=== PATIENT | male | born 1975 | race Caucasian/White ===

== ENCOUNTER 2018-08-12 18:34 | Emergency (ER) | payer MEDICAID ==
[~2018-08-12] VITALS: Ht 162.6 cm; Wt 65.8 kg
[2018-08-12 18:35] VITALS: BP_SYST 135
[2018-08-12] MEDS ORDERED: FOLIC ACID 1 MG, THIAMINE HCL 100 MG, MAGNESIUM SULFATE 1 GM, MVI 10 ML in NACL 0.9% 1,... IV ONE (20:15)
[2018-08-12] MEDS ORDERED: THIAMINE HCL 100 MG/ML VIAL ONE (20:43)
[2018-08-12] MEDS ORDERED: FOLIC ACID 5 MG/ML VIAL IV ONE (20:43)
[2018-08-12] MEDS ORDERED: MVI 10 ML VIAL IV ONE (20:43)
[2018-08-12] MEDS ORDERED: MAGNESIUM SULFATE 1 GM/2 ML VIAL ONE (20:43)
[2018-08-12 21:10] LABS: CALCIUM 8.2 mg/dL (8.4-11.0); CREATININE 0.77 mg/dL (0.55-1.30)
[2018-08-12 21:15] LABS: TOTAL BILIRUBIN 0.4 mg/dL (0.0-1.0)
[2018-08-12 21:16] LABS: PROTHROMBIN TIME 9.9 SECS (9.5-12.5)
[2018-08-12 21:20] LABS: BASOPHILS % (AUTO) 0.5 % (0.0-2.0); EOSINOPHILS % (AUTO) 0.9 % (0.0-4.0); HEMOGLOBIN 12.9 g/dL (14.0-18.0); LYMPHOCYTES # (AUTO) 2.6 K/uL (1.0-5.5); LYMPHOCYTES % (AUTO) 47.8 % (20.5-51.5); MEAN CORPUSCULAR HEMOGLOBIN 31 pg (27-31); MEAN CORPUSCULAR HGB CONC 33 % (32-36); MEAN CORPUSCULAR VOLUME 92 fL (79.0-98.0); MONOCYTES # (AUTO) 0.3 K/uL (0.0-1.0); NEUTROPHILS # (AUTO) 2.5 K/uL (1.8-7.7); NEUTROPHILS % (AUTO) 45.8 % (40.0-70.0); PLATELET COUNT (AUTO) 100 K/uL (130-430); RED BLOOD CELL COUNT(AUTO) 4.24 MIL/uL (4.2-6.2); RED CELL DISTRIBUTION WIDTH 15.2 % (9.0-15.0); WHITE BLOOD COUNT (AUTO) 5.4 K/uL (4.8-10.8)
[2018-08-12 21:34] LABS: BILIRUBIN,URINE NEGATIVE (NEGATIVE); BLOOD, URINE NEGATIVE (NEGATIVE); CLARITY/URINE CLEAR (CLEAR); COLOR,URINE YELLOW (YELLOW); GLUCOSE,URINE NEGATIVE (NEGATIVE); KETONES,URINE NEGATIVE (NEGATIVE); LEUKOCYTE ESTERASE ,URINE NEGATIVE (NEGATIVE); NITRITE, URINE NEGATIVE (NEGATIVE); PH,URINE 5.5 (5.0-8.0); PROTEIN URINE NEGATIVE (NEGATIVE); UROBILINOGEN,URINE 0.2 (0.2-1.0)
[2018-08-12 21:56] LABS: BARBITURATE, URINE NEGATIVE (NEG <=200); BENZODIAZEPINE, URINE POSITIVE (NEG <=150); CANNABINOID, URINE NEGATIVE (NEG <=50); COCAINE, URINE NEGATIVE (NEG <=150); METHAMPHETAMINES SCREEN,URINE NEGATIVE (NEG <=500); OPIATE, URINE NEGATIVE (NEG <=100); PHENCYCLIDINE SCREEN,URINE NEGATIVE (NEG <=25); UR TRICYCLIC ANTIDEPRESSANTS NEGATIVE (NEG <=300); URINE AMPHETAMINE NEGATIVE (NEG <=500); URINE METHADONE NEGATIVE (NEG <=200); URINE OXYCODONE SCREEN NEGATIVE (NEG <=100); URINE PROPOXYPHENE SCREEN NEGATIVE (NEG <=300)
[2018-08-13 00:07] VITALS: BP_SYST 160
== END 2018-08-13 00:07 | disposition short-term general hospital (02) ==
LOC: SED 18:34
DX: F10.129 Alcohol abuse with intoxication, unspecified (principal); I48.91 Unspecified atrial fibrillation; F31.9 Bipolar disorder, unspecified; Y90.9 Presence of alcohol in blood, level not specified
CPT/HCPCS: 36415; 80053; 80307; 81003; 84484; 85025; 85610; 85730; 93005; 96365; 96366; 99285; G0482; J3411; J3475; J3490

== ENCOUNTER 2020-04-01 11:25 | Inpatient (IN) | payer MEDICAID, SELFPAY ==
[~2020-04-01] VITALS: Ht 162.6 cm; Wt 65.3 kg
[2020-04-01 11:29] VITALS: BP_SYST 137
--- NOTE | 2020-04-01 11:33 | NUR ---
Placed in room 3 . Placed on power superintendent, blood pressure machine and pulse oximeter. To gown for exam. Side rails up. Report given to SHAMAR Flynn.
--- NOTE | 2020-04-01 11:37 | NUR ---
ER at bedside examining patient.
[2020-04-01] MEDS ORDERED: NACL 0.9% 2,000 ML IV ONE (11:45)
--- NOTE | 2020-04-01 11:47 | NUR ---
EDIE TO ASSUME CARE, ANXIOUS, ALERT, TACHYCARDIC, SKIN WARM AN DRY C/O ALCOHOL WITHDRAWL AND LAST DRINK 3 DAYS AGO
[2020-04-01 12:02] LABS: BASOPHILS % (AUTO) 0.5 % (0.0-2.0); EOSINOPHILS % (AUTO) 0.5 % (0.0-4.0); HEMOGLOBIN 12.1 g/dL (14.0-18.0); LYMPHOCYTES % (AUTO) 15.3 % (20.5-51.5); MEAN CORPUSCULAR HEMOGLOBIN 30 pg (27-31); MEAN CORPUSCULAR HGB CONC 33 % (32-36); MEAN CORPUSCULAR VOLUME 93 fL (79.0-98.0); MONOCYTES # (AUTO) 0.3 K/uL (0.0-1.0); MONOCYTES % (AUTO) 4.6 % (1.7-9.3); NEUTROPHILS # (AUTO) 4.9 K/uL (1.8-7.7); NEUTROPHILS % (AUTO) 79.1 % (40.0-70.0); PLATELET COUNT (AUTO) 90 K/uL (130-430); RED BLOOD CELL COUNT(AUTO) 3.99 MIL/uL (4.2-6.2); RED CELL DISTRIBUTION WIDTH 16.1 % (9.0-15.0); WHITE BLOOD COUNT (AUTO) 6.2 K/uL (4.8-10.8)
[2020-04-01 12:06] LABS: ANION GAP 19 (5-15); CALCIUM 9.6 mg/dL (8.4-11.0); CHLORIDE 92 mmol/L (98-107); CREATININE 1.67 mg/dL (0.55-1.30); GLUCOSE 223 mg/dL (70-99); SODIUM SERUM 134 mmol/L (136-145); UREA NITROGEN, BLOOD 8 mg/dL (8-21)
[2020-04-01 12:12] LABS: ALANINE AMINOTRANSFERASE 116 U/L (12-78); ALBUMIN 4.7 g/dL (3.4-4.8); ASPARTATE AMINOTRANSFERASE 444 U/L (10-37); TOTAL BILIRUBIN 1.6 mg/dL (0.0-1.0)
[2020-04-01 12:17] LABS: ALCOHOL, BLOOD < 3 mg/dL (<10); GFR AFRICAN AMERICAN 58 mL/min (>90); POTASSIUM 2.8 mmol/L (3.5-5.1)
--- NOTE | 2020-04-01 12:30 | NUR ---
CALM, ALERT, EASILY AROUSED, SKIN WARM AND DRY. COMMUNICATES CLEARLY IN FULL COMPLETE SENTENCES
[2020-04-01] MEDS ORDERED: POTASSIUM CHLORIDE 20 MEQ TAB.PRT.SR PO ONE (13:00)
--- NOTE | 2020-04-01 15:11 | NUR ---
[facility] [employer] Solution Architect, Darrian, requested fax of facesheet and clinicals. fax: [phone] IAM Hallman spoke to Darrian, Ob[employer]e [employer] Solution Architect
--- NOTE | 2020-04-01 15:23 | NUR ---
ADMIT ORDERS RECEIVED FOR TELE ADMISSION
[2020-04-01] MEDS ORDERED: BANANA BAG 1 EA, FOLIC ACID 1 MG, THIAMINE HCL 100 MG, MAGNESIUM SULFATE 1 GM, MVI 10 M... IV SCH ×5 (16:00)
--- NOTE | 2020-04-01 16:03 | NUR ---
Patient will be admitted to care of ROGELIO. Admitted to TELE unit. Will go to room 132C. Belongings list completed. Complete and up to date summary report printed. SBAR report to be given at bedside with opportunity for questions.
--- NOTE | 2020-04-01 16:10 | NUR ---
ADMIT NOTE Received pt from ER to the floor with a diagnosis of Alcohol intoxication. Admission process initiated. patient oriented to pain management, safety and call light-teach back done.
[2020-04-01 16:48] VITALS: BP_SYST 158
--- NOTE | 2020-04-01 16:52 | NUR ---
ATTENDING MD DR CASTRO WAS CALLED, RE: DIET ORDER. SPOKE TO [place].
[2020-04-01] MEDS: THIAMINE HCL 100 MG, MAGNESIUM SULFATE 1 GM in NS 100 ML IV SCH (17:55)
[2020-04-01] MEDS: FOLIC ACID 1 MG, MVI 10 ML in NACL 0.9% 1,000 ML IV SCH (17:55)
--- NOTE | 2020-04-01 18:41 | NUR ---
Closing Note patient in bed a/o x 4, no signs of distress noted, respirations even and unlabored, safety measures put in place, bed locked and in low position, fall/aspiration/seizure precautions put in place, will endorse patient care to oncoming night shift manager nurse.
--- NOTE | 2020-04-01 19:30 | NUR ---
Opening notes Pt asleep, easily awakens, calm, VSS, SR on the monitor. No DTs noted at this time. Banana bag infusing at ordered rate R AC 18G, no s/s infiltration. Call light wihtin reach. Bed low, locked, siderails up x4, alarm on. Seizure precaution in place. To monitor.
[2020-04-01 20:00] VITALS: BP_SYST 91
--- NOTE | 2020-04-01 20:21 | NUR ---
PAGED PAGED DOCTOR CASTRO FOR ORDERS
--- NOTE | 2020-04-01 20:24 | NUR ---
called back Received callback from Dr. Momin. Informed pt is requesting for food or ice chips. Per ok to be on clear liquid diet.
--- NOTE | 2020-04-01 21:48 | NUR ---
Ambulate w/ assist Pt assisted to walk to bathroom, pt states he had a BM. Seizure prec maintained.
[2020-04-01] MEDS: LORazepam 2 MG/ML VIAL IVP PRN (22:24)
--- NOTE | 2020-04-01 23:15 | NUR ---
IV RE-INSERTION: IV came out on R. AC. DC'd IV catheter tip intact, no bleeding. Restarted new IV L. FA 24G. Successful after 2 attempts. Resumed current IVF at ordered rate. Will observe for any signs of infiltration. Pt tolerated well.
[2020-04-02 00:19] VITALS: BP_SYST 151
[2020-04-02] MEDS: D5NS 1,000 ML IV SCH ×4 (01:15→21:15)
--- NOTE | 2020-04-02 01:15 | NUR ---
Awake Pt awake, calm, asking if this is [place], and he is asking for a bus route to [place]. Oriented pt to surrounding and time, pt verbalized understanding. Seizure precaution in place. Bed low, locked, side rails up x4, alarm on. To monitor.
--- NOTE | 2020-04-02 05:10 | NUR ---
Rounds Pt asleep, respirations even and unlabored. IVF infusing at ordered rate L. FA clear and patent. Call light within reach. Bed low, locked, siderails up x3, bed alarm on. To monitor.
[2020-04-02 06:28] LABS: BASOPHILS % (AUTO) 0.6 % (0.0-2.0); EOSINOPHILS # (AUTO) 0.1 K/uL (0.0-0.4); EOSINOPHILS % (AUTO) 1.5 % (0.0-4.0); HEMATOCRIT 34.7 % (36-54); HEMOGLOBIN 11.5 g/dL (14.0-18.0); LYMPHOCYTES # (AUTO) 1.2 K/uL (1.0-5.5); LYMPHOCYTES % (AUTO) 17.6 % (20.5-51.5); MEAN CORPUSCULAR HEMOGLOBIN 31 pg (27-31); MEAN CORPUSCULAR HGB CONC 33 % (32-36); MEAN CORPUSCULAR VOLUME 93 fL (79.0-98.0); MONOCYTES # (AUTO) 0.5 K/uL (0.0-1.0); NEUTROPHILS # (AUTO) 4.9 K/uL (1.8-7.7); NEUTROPHILS % (AUTO) 73.3 % (40.0-70.0); PLATELET COUNT (AUTO) 79 K/uL (130-430); RED BLOOD CELL COUNT(AUTO) 3.74 MIL/uL (4.2-6.2); RED CELL DISTRIBUTION WIDTH 16.7 % (9.0-15.0); WHITE BLOOD COUNT (AUTO) 6.7 K/uL (4.8-10.8)
--- NOTE | 2020-04-02 06:55 | NUR ---
Closing notes Pt asleep, easily arousable. No s/s agitation noted. IVF infusing at ordered rate L. FA no s/s infiltration. Call light within reach. Bed low, locked, siderails up x3, bed alarm on. To endorse to AM nurse.
[2020-04-02 07:17] LABS: ALBUMIN 4.2 g/dL (3.4-4.8); CALCIUM 8.4 mg/dL (8.4-11.0); CREATININE 0.63 mg/dL (0.55-1.30); TOTAL BILIRUBIN 1.4 mg/dL (0.0-1.0)
--- NOTE | 2020-04-02 07:40 | NUR ---
Initial notes awake, oriented. eating breakfast. denies any chest pain or shortness of breath. Banana bag running. IV site is infiltrated. started a new one. pt tolerated well. No acute distress noted. safety precaution observed. call light in reach. will monitor.
[2020-04-02 08:00] VITALS: BP_SYST 138
[2020-04-02] MEDS: LORazepam 2 MG/ML VIAL IVP PRN ×2 (08:49→18:13)
--- NOTE | 2020-04-02 10:00 | NUR ---
Notes- Resting in bed, denies any pain or discomfort. No acute distress noted. Banana bag still infusing
[2020-04-02 12:18] VITALS: BP_SYST 134
[2020-04-02] MEDS ORDERED: POTASSIUM CHLORIDE 40 MEQ in NS 250 ML IV ONE (12:30)
--- NOTE | 2020-04-02 12:33 | NUR ---
HIGH ALERT NOTE: Called Dr. Momin back at . identified within the medical roster to verify physician authenticity.
--- NOTE | 2020-04-02 16:00 | NUR ---
Notes Awake in bed, watching tv. denies any pain or discomfort. enc. to call for help as needed.
[2020-04-02 16:15] VITALS: BP_SYST 124
[2020-04-02] MEDS: FOLIC ACID 1 MG, MVI 10 ML in NACL 0.9% 1,000 ML IV SCH (18:00)
[2020-04-02] MEDS: THIAMINE HCL 100 MG, MAGNESIUM SULFATE 1 GM in NS 100 ML IV SCH (18:00)
--- NOTE | 2020-04-02 18:47 | NUR ---
Notes Awake, watching tv. no acute distress noted. All needs meet through out shift. will monitor.
--- NOTE | 2020-04-02 19:10 | NUR ---
Report received from day shift nurse. Pt is fully awake, alert and oriented x4. Pt is ambulating in his room with steady gait. No seizure activity noted. Pt is on room air and no respiratory distress noted. Banana bag IVF is infusing well in [place] at 42ml/hr without any signs of infiltration. Pt was instructed to call for assistance as needed and pt verbalized understanding. Pt's bed is in lowest and locked positions.
[2020-04-02 20:00] VITALS: BP_SYST 135
--- NOTE | 2020-04-02 23:00 | NUR ---
Pt is sleeping without any distress. IVF is infusing well in [place]. Fall and safety precautions are in place.
[2020-04-03] MEDS: LORazepam 2 MG/ML VIAL IVP PRN ×5 (01:12→22:17)
--- NOTE | 2020-04-03 01:12 | NUR ---
Ativan 1mg was given IV per pt's request for c/o anxiety. Pt declined bed alarm. Pt was instructed to call for assistance before getting out of bed if he feels dizzy or drowsy and pt verbalized understanding.
--- NOTE | 2020-04-03 03:30 | NUR ---
Pt is sleeping comfortably in bed. Banana bag IVF is infusing well in [place]TE[place]. Fall and safety precautions are in place.
--- NOTE | 2020-04-03 05:00 | NUR ---
Pt continues to sleep comfortably in bed. IVF is infusing well.
--- NOTE | 2020-04-03 06:30 | NUR ---
Pt is awake and not in any distress. No c/o pain or discomfort. IVF is infusing well in MARTELL.
[2020-04-03 06:37] LABS: HEPATITIS A AB, IgM Negative (Negative); HEPATITIS B CORE AB, IgM Negative (Negative); HEPATITIS B SURFACE AG Negative (Negative)
[2020-04-03 08:00] VITALS: BP_SYST 149
[2020-04-03] MEDS: D5NS 1,000 ML IV SCH (08:00)
--- NOTE | 2020-04-03 08:00 | NUR ---
Initial notes Sitting at the edge of the bed, eating breakfast. banana bag infusing well. Denies any pain or discomfort. safety precaution observed. call light in reach. will continue to monitor.
[2020-04-03] MEDS ORDERED: FLU VACC QS2020-21 (6 mos & up) 0.5 ML/SYRINGE I.M. PRN (09:30)
--- NOTE | 2020-04-03 12:00 | NUR ---
Notes walking outside the room, pt ambulate with steady gait. Denies any pain or discomfort.
[2020-04-03 12:18] VITALS: BP_SYST 127
--- NOTE | 2020-04-03 14:20 | NUR ---
Late Entry Social Services Designee: social work interview, Etoh, Homeless ANIMAL CARE TECHNICIAN introduced self to pt. who was getting cleaned up. ANIMAL CARE TECHNICIAN stated she could come back. ANIMAL CARE TECHNICIAN went back to interview pt. He was talking with a little quiver in his voice. He had a banana bag. Pt. was agreeable to an interview. Pt. made some corrections on the facesheet. Pt admitted to being homeless. He stated he comes back and forth from [place] where his mom resides. His mom is Priya Ramos, . Pts. phone is [phone]. [place] and is homeless. He had been on the streets in [place] for 2 weeks. He would sleep at a bus stop. One day a gentleman approached him and asked if he needed a place to stay. Pt. went home with him where he has been staying to the past 3 weeks. This address is [address] [place] [address]. Pt. stated he has a sister in [place], one in [place] and a brother in [place]. He is not close to them. Pt. stated it was because of their spouses. ANIMAL CARE TECHNICIAN asked if his drinking had anything to do with it. Pt. stated yes. He said he drinks a lot because he use to take meds for his Dx. of Bipolar and Anxiety. Pt. is self medicating. He was Dx. with these mental illness' around 2017. He was receiving services from [facility], Therapist was Polina and Psych was Dr. Bradford. He was taking Ativan (pm) and Hydroxy. in the day when he should have been taking meds in reverse. He said he feels the meds mess with his liver. ANIMAL CARE TECHNICIAN stated the Alcohol is not a great substitute. ANIMAL CARE TECHNICIAN asked pt. is he would think about going back to [facility] and back on meds. ANIMAL CARE TECHNICIAN aske pt. if he had ever been or is suicidal. Pt. stated he had been at [facility] 2 times. Once he had said out of frustration, " I don't want to be here anymore" and this set the tone for a hospitalization. He has also had a psych hospitalization at [facility] and lastly [facility]. All psych hospitalizations were prior to 2017. Pt. denied being suicidal at this time. Pt. stated it was so hard to be homeless and needed help. ANIMAL CARE TECHNICIAN asked if he was willing to enroll in a program to get clean and also start his meds and therapy, ANIMAL CARE TECHNICIAN can try to fill out an application for pt. for a [facility] housing/mental health program. ANIMAL CARE TECHNICIAN told him it was just an application. He was agreeable. ANIMAL CARE TECHNICIAN provided pt. with numerous resources for Homelessness, Shelters and Substance abuse. ANIMAL CARE TECHNICIAN included a "Homeless Waiver"in the pts. medical chart in the Rn. station. Lastly ANIMAL CARE TECHNICIAN completed a Homeless Assessment. ANIMAL CARE TECHNICIAN spoke to Rn, Roberto and shared her concern with her re. pt. who stated he had been hospitalized in a psych facility such as [facility] on 4 separate occasions for suicidal ideations. ANIMAL CARE TECHNICIAN asked Rn to request if can request a psych eval. Additionally, pt. stated he was willing to take his meds for Bi-polar and Anxiety. ANIMAL CARE TECHNICIAN filled out and faxd an application to Elizabeth Sanchez (Ph.) [phone] with the Dept. of Mental Health to see if pt. could meet criteria for services such as housing and mental health support. ANIMAL CARE TECHNICIAN received a fax confirmation and lastly called and left a message for Daniel. ANIMAL CARE TECHNICIAN will follow up.
--- NOTE | 2020-04-03 14:31 | NUR ---
CONSULTATION PAGED REASON FOR CONSULTATION:AGITATION,, ALCOHOLISM WAS CONSULT CALLED?Y PERSON WHO WAS NOTIFIED:ANJUM CONSULTING PHYSICIAN:GENI SORENSON SALES VICE PRESIDENT SPECIALTY:PSYCHE SALES VICE PRESIDENT PHONE NUMBER:[phone] ORDERING PHYSICIAN:RICKY KAPADIA
--- NOTE | 2020-04-03 15:44 | NUR ---
Notes Resting at this time. no acute distress noted. will monitor.
[2020-04-03 16:54] VITALS: BP_SYST 144
[2020-04-03] MEDS: THIAMINE HCL 100 MG, MAGNESIUM SULFATE 1 GM in NS 100 ML IV SCH (17:11)
[2020-04-03] MEDS: FOLIC ACID 1 MG, MVI 10 ML in NACL 0.9% 1,000 ML IV SCH (17:12)
--- NOTE | 2020-04-03 18:31 | NUR ---
Notes Sitting at the edge of the bed eating dinner. denies any pain or discomfort. Banana bag infusing well. all needs meet. will endorse.
--- NOTE | 2020-04-03 19:25 | NUR ---
OPENING NOTE RECEIVED SBAR REPORT FROM OFF COMING RN FOR CONTINUITY OF CARE.
[2020-04-03 21:00] VITALS: BP_SYST 143
--- NOTE | 2020-04-03 21:30 | NUR ---
PT PACING IN ROOM AND STATING HE IS ANXIOUS AND AGITATED. PT ON RA, OXYGEN SATURATION ABOVE 90%. BANANA BAG INFUSING @ 42 ML/HR. SEIZURE PRECAUTIONS IN PLACE. BED LOCKED AND IN LOWEST POSITION. WILL ADMINISTER PRN PAIN MEDICATIONS PER EMAR. WILL CONTINUE TO MONITOR AND ASSESS.
[2020-04-03] MEDS ORDERED: ZOLPIDEM TARTRATE 5 MG TABLET PO PRN (22:45)
[2020-04-04 01:00] VITALS: BP_SYST 145
--- NOTE | 2020-04-04 01:00 | NUR ---
PT PACING IN ROOM AND STATING HE IS ANXIOUS AND AGITATED. ENCOURAGED PT TO ATTEMPT TO REST. PT ON RA, OXYGEN SATURATION ABOVE 90%. BANANA BAG INFUSING @ 42 ML/HR. SEIZURE PRECAUTIONS IN PLACE. BED LOCKED AND IN LOWEST POSITION. WILL ADMINISTER PRN PAIN MEDICATIONS PER EMAR. WILL CONTINUE TO MONITOR AND ASSESS.
[2020-04-04] MEDS: D5NS 1,000 ML IV SCH ×2 (03:15→15:15)
--- NOTE | 2020-04-04 05:00 | NUR ---
PT SLEEPING IN BED, NO S/S OF ACUTE DISTRESS NOTED. PT ON RA. BANANA BAG INFUSING. SEIZURE PRECAUTIONS IN PLACE. BED LOCKED AND IN LOWEST POSITION. WILL CONTINUE TO MONITOR AND ASSESS.
--- NOTE | 2020-04-04 07:35 | NUR ---
CLOSING NOTE ENDORSED SBAR REPORT TO ONCOMING RN FOR CONTINUITY OF CARE.
--- NOTE | 2020-04-04 07:40 | NUR ---
Opening Notes Pt received from night RN using SBAR. Pts eyes are closed but easily awaken to verbal stimuli. Bed is in lowest position, call light within reach and seizure pads on bed. Pt denies pain or distress at this time. Will continue to monitor.
[2020-04-04 07:48] LABS: BASOPHILS % (AUTO) 0.7 % (0.0-2.0); EOSINOPHILS # (AUTO) 0.1 K/uL (0.0-0.4); EOSINOPHILS % (AUTO) 2.4 % (0.0-4.0); HEMATOCRIT 35.8 % (36-54); HEMOGLOBIN 11.7 g/dL (14.0-18.0); LYMPHOCYTES % (AUTO) 22.8 % (20.5-51.5); MEAN CORPUSCULAR HEMOGLOBIN 31 pg (27-31); MEAN CORPUSCULAR HGB CONC 33 % (32-36); MEAN CORPUSCULAR VOLUME 94 fL (79.0-98.0); MONOCYTES # (AUTO) 0.6 K/uL (0.0-1.0); MONOCYTES % (AUTO) 13.9 % (1.7-9.3); NEUTROPHILS # (AUTO) 2.6 K/uL (1.8-7.7); NEUTROPHILS % (AUTO) 60.2 % (40.0-70.0); PLATELET COUNT (AUTO) 124 K/uL (130-430); RED BLOOD CELL COUNT(AUTO) 3.81 MIL/uL (4.2-6.2); RED CELL DISTRIBUTION WIDTH 16.9 % (9.0-15.0); WHITE BLOOD COUNT (AUTO) 4.2 K/uL (4.8-10.8)
[2020-04-04 07:59] LABS: ALBUMIN 3.8 g/dL (3.4-4.8); CALCIUM 8.8 mg/dL (8.4-11.0); CREATININE 0.65 mg/dL (0.55-1.30); POTASSIUM 3.4 mmol/L (3.5-5.1); TOTAL BILIRUBIN 0.7 mg/dL (0.0-1.0)
[2020-04-04] MEDS: LORazepam 2 MG/ML VIAL IVP PRN ×2 (10:41→15:15)
[2020-04-04 12:04] VITALS: BP_SYST 146
--- NOTE | 2020-04-04 13:52 | NUR ---
MD Dr. Dunlap was bedside with pt, discussed plan of care with MD outside of pts room. MD stated ok to discharge home not [facility].
[2020-04-04] MEDS ORDERED: GABAPENTIN 300 MG CAPSULE PO SCH (15:00)
--- NOTE | 2020-04-04 15:03 | NUR ---
Spoke to Dr. Sutton provided and update as to pt's presentation. Informed of Dr. Campuzano recommendation and read Dr. Dunlap consultation recommendation. Dr. Sutton confirmed that pt Addendum: 04/04/20 at 1655 by Juany Angelo RN Dr. Thornton ... will be discharged to home address provided today. Informed of Pts [facility] [address] in [place], Dr Sutton will be sending the RX directly there.
--- NOTE | 2020-04-04 15:10 | NUR ---
Clothing Pt requested for clothing and security provided a T-Shirt and Too pants which were given to pt.
[2020-04-04 16:08] VITALS: BP_SYST 138
[2020-04-04] MEDS ORDERED: NEU100 PO (16:14)
--- NOTE | 2020-04-04 16:47 | NUR ---
Andrés Spoke to Christina with [employer] to provide further information. Confirmed voucher and stated pickling grader time will be in approx 30 mins with potentially further wait time, we will receive a call when coach driver is out front.
--- NOTE | 2020-04-04 17:02 | NUR ---
Education Pt provided education and therapeutic discussion regarding Alcohol and different ways to cope with the pressure of drinking. Pt was actively participating in discussion for approx 10 minutes. All questions answered at this time.
--- NOTE | 2020-04-04 17:12 | NUR ---
D/C IV, removed ID band D/C IV to left AC #22 g, applied pressure gauze and tape. Pt was not bleeding from IV site.
[2020-04-04] MEDS ORDERED: traZODone HCL 50 MG TABLET (DESYREL) PO SCH (21:00)
== END 2020-04-04 17:20 | disposition home or self-care (01) | DRG 280 ==
LOC: SED 11:25 → STU 15:12
PROVIDERS: ADMIT Internal Medicine Hospice and Palliative Medicine; ATTEND Internal Medicine Hospice and Palliative Medicine
DX: K70.10 Alcoholic hepatitis without ascites (principal); F10.10 Alcohol abuse, uncomplicated; Z20.828 Contact with and (suspected) exposure to other viral communicable diseases; Y90.9 Presence of alcohol in blood, level not specified; F41.9 Anxiety disorder, unspecified; Z59.0 Homelessness; N17.0 Acute kidney failure with tubular necrosis; R65.11 Systemic inflammatory response syndrome (SIRS) of non-infectious origin with acute organ dysfunction
CPT/HCPCS: 36415; 76700-TC; 80053; 80074; 81002; 82550-TC; 83690-TC; 85025; 93005; 96365; 96375; 96376; 99291; G0378; G0482; J2060; J3411; J3475; J3480; J3490; J7030; J7042; J7050

== ENCOUNTER 2020-05-12 12:10 | Emergency (ER) | payer MEDICAID, SELFPAY ==
[~2020-05-12] VITALS: Ht 165.1 cm; Wt 81.6 kg
[2020-05-12 12:10] VITALS: BP_SYST 123
[~2020-05-12 12:10] MED LIST: NEU100 PO
--- NOTE | 2020-05-12 12:10 | NUR ---
Patient to ER bed 5 to gown for evaluation. Side rails up.
--- NOTE | 2020-05-12 12:15 | NUR ---
Pt bib EMS with alcohol intoxication. V/S stable, pt is afebrile. Pt currently sleeping in bed, will continue to monitor.
--- NOTE | 2020-05-12 12:20 | NUR ---
ER Dr. Riggins at bedside examining patient.
--- NOTE | 2020-05-12 13:30 | NUR ---
SLEEPING QUIETLY, NO CHANGES
--- NOTE | 2020-05-12 14:45 | NUR ---
PT FAMILY CALLED REGARDING PT STATUS, NO UPDATE AT THIS TIME REQUESTED CALL BACK FOR ANY UPDATE. MCKENZIE
[2020-05-12 15:38] VITALS: BP_SYST 132
--- NOTE | 2020-05-12 15:39 | NUR ---
Patient given written and verbal discharge instructions and verbalizes understanding. ER MD discussed with patient the results and treatment provided. Patient in stable condition. ID arm band removed. No prescriptions given. Patient educated on pain management and to follow up with PMD. Pain Scale 0. Opportunity for questions provided and answered. Medication side effect fact sheet provided. Pt provided with a Taxi voucher to be discharged to his brother's house.
== END 2020-05-12 15:39 | disposition home or self-care (01) ==
LOC: SED 12:10
DX: F10.129 Alcohol abuse with intoxication, unspecified (principal)
CPT/HCPCS: 99283